=== PATIENT | male | born 1990 | race Caucasian/White ===

== ENCOUNTER → 2016-10-22 | Outpatient (CLI) | payer OTHER ==
--- NOTE | 2016-10-22 13:04 | RAD ---
MRCP, 10/22/2016: History: Abdominal pain, pancreatitis Imaging was performed in axial and coronal planes utilizing a variety of sequences including T2 weighted, fat suppressed T2 weighted and opposed phase gradient echo sequences. Heavily T2 weighted MRCP sequences were also obtained with 3-D MIP images reconstructed. The gallbladder is within normal limits in size. No gallstones are identified. The intrahepatic and extrahepatic bile ducts are small. No filling defect is seen in the common duct to suggest a calculus. The pancreatic duct is also small. No hepatic abnormality is seen. The spleen and both kidneys are unremarkable. No definite pancreatic mass is identified. The pancreatic tail demonstrates a different signal intensity then the majority of the pancreatic body and head. It demonstrates increased signal on the T2-weighted sequences suggesting nonspecific edema. This is likely related to the given history of pancreatitis. IMPRESSION: 1. No biliary tract abnormality is detected. 2. Probable edema in the pancreatic tail compatible with the given history of pancreatitis. Correlation with CT findings is suggested.
== END | disposition home or self-care (01) ==
LOC: MRI 08:50
PROVIDERS: ATTEND Internal Medicine Gastroenterology
DX: R10.9 Unspecified abdominal pain (principal); K85.90 Acute pancreatitis without necrosis or infection, unspecified
CPT/HCPCS: 74181